=== PATIENT | male | born 1945 | race Caucasian/White ===

== ENCOUNTER → 2016-08-02 | Outpatient (CLI) | payer MEDICARE | LOC: HEART CORB 08:45 | DX: I25.10 Atherosclerotic heart disease of native coronary artery without angina pectoris (principal); R06.02 Shortness of breath; I20.8 Other forms of angina pectoris; M79.602 Pain in left arm | CPT/HCPCS: 78452; 93306; A9502; J0280; J2785 ==

== ENCOUNTER → 2020-07-12 | Outpatient (CLI) | payer MEDICARE ==
[~2020-07-12] MED LIST: AMIODARONE HCL200 MG PO; ASPIRIN EC81 MG PO; ASPIRIN325 MG PO; ATORVASTATIN CA20 MG PO; BRILINTA 90 MG90 MG PO; COREG 12.5MG12.5 MG PO; DICLOFENAC POTA50 MG PO; EFFIENT10 MG PO; ENTRESTO 24 MG1 EACH PO; IMDUR ER TAB 3030 MG PO; TOPROL XL50 MG PO
== END ==
LOC: HEART CORB 10:00
DX: I25.10 Atherosclerotic heart disease of native coronary artery without angina pectoris (principal); I50.22 Chronic systolic (congestive) heart failure; I25.5 Ischemic cardiomyopathy; I08.3 Combined rheumatic disorders of mitral, aortic and tricuspid valves; I27.20 Pulmonary hypertension, unspecified; R93.1 Abnormal findings on diagnostic imaging of heart and coronary circulation
CPT/HCPCS: 93306